=== PATIENT | female | born 1990 | race American Indian/Alaskan Native ===

== ENCOUNTER 2017-01-12 21:50 | Emergency (ER) | payer OTHER ==
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
[2017-01-13] MEDS ORDERED: VALIUM PO ONE (00:26)
[2017-01-13] MEDS ORDERED: NORCO 5/325 PO ONE (00:26)
[2017-01-13 01:02] VITALS: BP 189/96
== END 2017-01-13 02:52 | disposition home or self-care (01) ==
LOC: ED 21:50
DX: S13.4XXA Sprain of ligaments of cervical spine, initial encounter (principal); G44.319 Acute post-traumatic headache, not intractable; M54.5 Low back pain; M54.2 Cervicalgia; R03.0 Elevated blood-pressure reading, without diagnosis of hypertension; E66.9 Obesity, unspecified; Z68.41 Body mass index [BMI] 40.0-44.9, adult; I63.9 Cerebral infarction, unspecified; Z91.013 Allergy to seafood; V43.52XA Car driver injured in collision with other type car in traffic accident, initial encounter; Y93.9 Activity, unspecified; Y92.410 Unspecified street and highway as the place of occurrence of the external cause; Y99.9 Unspecified external cause status
CPT/HCPCS: 70450; 72125; 72131

== ENCOUNTER 2017-03-16 13:48 | Inpatient (IN) | payer OTHER ==
[~2017-03-16 13:48] MED LIST: ZOFRAN ONE
[2017-03-16] MEDS ORDERED: NITROSTAT SL ONE (14:36)
[2017-03-16] MEDS ORDERED: CATAPRES PO ONE (14:36)
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
[2017-03-16 15:33] LABS: Basophils % (Auto) 0.4 % (0.0-1.8); Eosinophils # (Auto) 0.1 K/mm3 (0.0-0.4); Eosinophils % (Auto) 0.7 % (0.0-4.3); Hematocrit 48.5 % (30.3-42.9); Lymphocytes # (Auto) 3.3 K/mm3 (1.2-5.4); Lymphocytes % (Auto) 38.3 % (13.4-35.0); Mean Corpuscular HGB Conc 33 % (30-34); Mean Corpuscular Hemoglobin 27 pg (28-32); Mean Corpuscular Volume 83 fl (79-97); Monocytes # (Auto) 0.4 K/mm3 (0.0-0.8); Platelet Count 309 K/mm3 (140-440); Red Blood Count 5.87 M/mm3 (3.65-5.03); Red Cell Distribution Width 14.2 % (13.2-15.2)
[2017-03-16 15:41] LABS: BUN/Creatinine Ratio 18; Blood Urea Nitrogen 9 mg/dL (7-17); Calcium 9.1 mg/dL (8.4-10.2); Hemolysis Index 10
[2017-03-16] MEDS ORDERED: ZOFRAN ONE (16:41)
[2017-03-16] MEDS ORDERED: MORPHINE ONE (16:42)
[2017-03-16] MEDS ORDERED: MORPHINE IV ONE (17:00)
[2017-03-16] MEDS ORDERED: ZOFRAN IV ONE (17:01)
--- NOTE | 2017-03-16 18:53 | XRay Report ---
FINAL REPORT EXAM: XR CHEST 1V AP HISTORY: chest pain TECHNIQUE: One view examination of the chest PRIORS: None FINDINGS: Limited examination due to prominent soft tissue attenuation. There is no visible pulmonary consolidation, pleural effusion, or pneumothorax. Cardiac silhouette size is normal without vascular congestion. No visible acute displaced fracture in the regional skeleton. IMPRESSION: No evidence of acute cardiopulmonary disease in the visualized chest
[2017-03-16] MEDS ORDERED: APRESOLINE IV ONE (19:16)
[2017-03-16] MEDS ORDERED: TYLENOL PO ONE (19:16)
[2017-03-16] MEDS ORDERED: TYLENOL PO PRN (22:48)
[2017-03-16] MEDS ORDERED: AMBIEN PO PRN (22:48)
[2017-03-16] MEDS ORDERED: ZOFRAN IV PRN (22:48)
[2017-03-16] MEDS ORDERED: DULCOLAX PR PRN (22:48)
[2017-03-16] MEDS ORDERED: MILK OF MAGNESIA PO PRN (22:48)
[2017-03-16] MEDS ORDERED: NORCO 5/325 PO PRN (22:48)
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
[2017-03-16] MEDS ORDERED: FLEXERIL PO PRN (22:50)
[2017-03-16] MEDS ORDERED: APRESOLINE IV PRN (22:56)
[2017-03-16] MEDS ORDERED: MORPHINE IV PRN (23:07)
[2017-03-16] MEDS: COREG PO SCH (23:33)
[2017-03-16] MEDS: DILAUDID IV PRN (23:33)
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
[2017-03-17 05:19] LABS: Basophils % (Auto) 0.3 % (0.0-1.8); Eosinophils # (Auto) 0.1 K/mm3 (0.0-0.4); Eosinophils % (Auto) 1.5 % (0.0-4.3); Hematocrit 42.5 % (30.3-42.9); Hemoglobin 14.1 gm/dl (10.1-14.3); Lymphocytes % (Auto) 36.5 % (13.4-35.0); Mean Corpuscular HGB Conc 33 % (30-34); Mean Corpuscular Hemoglobin 28 pg (28-32); Mean Corpuscular Volume 83 fl (79-97); Monocytes # (Auto) 0.4 K/mm3 (0.0-0.8); Monocytes % (Auto) 5.3 % (0.0-7.3); Platelet Count 282 K/mm3 (140-440); Red Blood Count 5.11 M/mm3 (3.65-5.03); Red Cell Distribution Width 14.3 % (13.2-15.2)
[2017-03-17 05:40] LABS: Alanine Aminotransferase 33 units/L (7-56); Albumin 3.5 g/dL (3.9-5); BUN/Creatinine Ratio 15; Blood Urea Nitrogen 9 mg/dL (7-17); Calcium 8.4 mg/dL (8.4-10.2); Hemolysis Index 52
--- NOTE | 2017-03-17 08:22 | Discharge Summary ---
Providers - Providers Date of Admission: 03/16/17 19:29 Date of discharge: 03/17/17 Attending physician: NEL HERNÁNDEZ Primary care physician: GISSELL LUZ Hospitalization Reason for admission: accel htn and cp Condition: Stable Hospital course: This is a 46-year-old female who presented to the emergency department with diagnosis of accelerated hypertension and chest pain. The patient was treated with appropriate medications for blood pressure which stabilized. Patient underwent a stress thallium, which was found to be negative. The patient's chest pain resolved and was felt to be most likely costochondritis. Patient will be discharged home and is follow-up with her PCP. Dedicated discharge time 32 minutes. Disposition: TO HOME OR SELFCARE Time spent for discharge: 32 - Discharge Diagnoses (1) Chest pain Status: Acute (2) Malignant hypertension Status: Acute Core Measure Documentation - Palliative Care Palliative Care/ Comfort Measures: Not Applicable - Core Measures Any of the following diagnoses?: none Exam - Constitutional Vitals: Temp Pulse Resp BP Pulse Ox 98.2 F 70 18 155/73 100 03/16/17 21:42 03/16/17 21:42 03/16/17 21:42 03/16/17 21:41 03/16/17 21:42 General appearance: Present: no acute distress, well-nourished - EENT Eyes: Present: PERRL ENT: hearing intact, clear oral mucosa - Neck Neck: Present: supple, normal ROM - Respiratory Respiratory effort: normal Respiratory: bilateral: CTA - Cardiovascular Heart Sounds: Present: S1 & S2. Absent: rub, click - Extremities Extremities: pulses symmetrical, No edema Peripheral Pulses: within normal limits - Abdominal General gastrointestinal: Present: soft, non-tender, non-distended, normal bowel sounds Female genitourinary: Present: normal - Integumentary Integumentary: Present: clear, warm, dry - Musculoskeletal Musculoskeletal: gait normal, strength equal bilaterally - Psychiatric Psychiatric: appropriate mood/affect, intact judgment & insight - Neurologic Neurologic: CNII-XII intact, moves all extremities Plan Activity: advance as tolerated Weight Bearing Status: Weight Bear as Tolerated Follow up with: GISSELL LUZ MD [Primary Care Provider] - 3-5 Days Prescriptions: amLODIPine [Norvasc] 10 mg PO QDAY #30 tablet Carvedilol [Coreg] 12.5 mg PO BID #60 tablet Cyclobenzaprine [Flexeril 10 MG TAB] 10 mg PO DAILY PRN #30 tablet PRN Reason: Muscle Spasm HYDROcodone/APAP 5-325 [[place] 5-325 mg TAB] 2 each PO Q6H PRN #30 tablet PRN Reason: Pain, Moderate (4-6) Losartan [Cozaar] 100 mg PO DAILY #30 tablet
[2017-03-17] MEDS ORDERED: LEXISCAN IV ONE ×2 (08:30)
[2017-03-17] MEDS ORDERED: PEPCID IV SCH (10:00)
[2017-03-17] MEDS ORDERED: NORVASC PO SCH (10:00)
[2017-03-17] MEDS ORDERED: COZAAR PO SCH (10:00)
[2017-03-17] MEDS ORDERED: NON-FORMULARY (Losartan [Cozaar] 100 MG) PO SCH (10:00)
[2017-03-17] MEDS: COREG PO SCH (10:02)
[2017-03-17] MEDS: DILAUDID IV PRN (10:03)
[2017-03-17 16:49] VITALS: BP 135/78
[2017-03-17] MEDS ORDERED: PEPCID PO SCH (22:00)
--- NOTE | 2017-03-18 05:19 | Treadmill Report ---
INDICATION: Chest pain. ORDERING PHYSICIAN: Daniel Saldaña MD FINDINGS: There is no scintigraphic evidence of myocardial ischemia. The left ventricle is normal in size and systolic function. The left ventricular ejection fraction is measured at 74% with normal wall motion and wall thickening. CONCLUSION: Normal perfusion scan. JOB# [id number]/[id number]
== END 2017-03-17 18:30 | disposition home or self-care (01) | DRG 206 ==
LOC: EDBD → ED 13:48 → 3A 19:29
PROVIDERS: ADMIT Internal Medicine; ATTEND Hospitalist
DX: M94.0 Chondrocostal junction syndrome [Tietze] (principal); I16.1 Hypertensive emergency; Z68.41 Body mass index [BMI] 40.0-44.9, adult; I10 Essential (primary) hypertension; M54.5 Low back pain; M54.16 Radiculopathy, lumbar region; E66.9 Obesity, unspecified; Z86.73 Personal history of transient ischemic attack (TIA), and cerebral infarction without residual deficits; Z90.710 Acquired absence of both cervix and uterus; Z82.49 Family history of ischemic heart disease and other diseases of the circulatory system
CPT/HCPCS: 36415; 71045; 78452; 80048; 80053; 84484; 85025; 93005; 93010; 93017; 96374; 96375; 99285; A9502; J0360; J1170; J2270; J2405; J2785